=== PATIENT | female | born 2005 | race African-American/Black ===

== ENCOUNTER 2025-04-08 23:51 | Emergency (ER) | payer MEDICAID ==
[~2025-04-08] VITALS: Ht 165.1 cm; Wt 69.2 kg
[2025-04-09] VITALS: TEMP 36.8; O2SAT 100
[2025-04-09 00:15] VITALS: O2SAT 99
[2025-04-09] MEDS ORDERED: IBUP-1455 MT (01:47)
[2025-04-09] MEDS ORDERED: HYDR-4001 MT (01:47)
[2025-04-09] MEDS ORDERED: AMOX-494 MT (01:48)
[2025-04-09 02:17] VITALS: BP 119/64; PULSE 72; RESP 16
[2025-04-09] MEDS: KETOROLAC 30MG/ML VIAL IM ONE (02:17)
[2025-04-09] MEDS: AMOXICILLIN 500MG CAPSULE PO ONE (02:22)
== END 2025-04-09 02:26 | disposition home or self-care (01) ==
LOC: ER 23:51
DX: K08.89 Other specified disorders of teeth and supporting structures (principal); Z98.890 Other specified postprocedural states
CPT/HCPCS: 99283; 81025; 96372; J1885